=== PATIENT | male | born 1925 | race Caucasian/White ===

== ENCOUNTER 2016-06-13 13:20 | Inpatient (IN) | payer MEDICARE, MEDICAID ==
[~2016-06-13] VITALS: Ht 172.7 cm; Wt 65.8 kg
[2016-06-13] MEDS ORDERED: ASPIRIN 81 MG CHEW TAB ONE ×2 (13:46→13:47)
[2016-06-13] MEDS ORDERED: Furosemide 40 MG/4 ML VIAL ONE (17:42)
[2016-06-13] MEDS ORDERED: ACETAMINOPHEN 325 MG TAB PO PRN (18:55)
[2016-06-13] MEDS ORDERED: DOCUSATE SOD 100 MG CAP PO PRN (18:55)
[2016-06-13] MEDS ORDERED: LORAZEPAM 0.5 MG TAB PO PRN (18:55)
[2016-06-13] MEDS ORDERED: ONDANSETRON 4 MG VIAL IM/IV PRN (18:55)
[2016-06-13] MEDS ORDERED: Carvedilol 3.125 MG TAB PO SCH (21:00)
[2016-06-13 22:31] VITALS: Ht 172.7 cm; Wt 65.8 kg
[2016-06-13 22:32] VITALS: BP_SYST 140; BP_SYST 155; RESP 20; TEMP 97
[2016-06-13] MEDS: APIXABAN 2.5 MG TAB PO SCH (22:45)
[2016-06-13] MEDS: KCL CR 10 MEQ TAB PO SCH (22:46)
[2016-06-14] VITALS (8 sets, daily range): BP systolic 90–129; RESP 16–20; TEMP 97.4–98.6
[2016-06-14] MEDS ORDERED: Carvedilol 6.25 MG TAB PO SCH (09:00)
[2016-06-14] MEDS: Furosemide 20 MG/2 ML VIAL IV SCH ×3 (09:13→16:00)
[2016-06-14] MEDS: KCL CR 10 MEQ TAB PO SCH ×2 (09:13→21:59)
[2016-06-14] MEDS: APIXABAN 2.5 MG TAB PO SCH ×2 (09:14→21:58)
[2016-06-14] MEDS ORDERED: APIXABAN 2.5 MG TAB PO SCH (21:00)
[2016-06-14] MEDS: ACETAMINOPHEN E.R. 650 MG TAB PO SCH (21:55)
[2016-06-14] MEDS: METOPROLOL TART 25 MG TAB PO SCH (22:07)
[2016-06-15] MEDS: Furosemide 20 MG/2 ML VIAL IV SCH ×3 (01:20→16:00)
[2016-06-15 04:49] VITALS: BP_SYST 118; RESP 20; TEMP 97.9
[2016-06-15 07:20] VITALS: BP_SYST 109; RESP 16; TEMP 97.7
[2016-06-15] MEDS ORDERED: CYPROHEPTADINE 4 MG TAB PO SCH (09:00)
[2016-06-15] MEDS: ACETAMINOPHEN E.R. 650 MG TAB PO SCH (09:40)
[2016-06-15] MEDS: KCL CR 10 MEQ TAB PO SCH (09:40)
[2016-06-15] MEDS: APIXABAN 2.5 MG TAB PO SCH (09:41)
[2016-06-15] MEDS ORDERED: MISSING DOSE XX ONE (09:50)
[2016-06-15] MEDS: METOPROLOL TART 25 MG TAB PO SCH (11:03)
[2016-06-15 11:44] VITALS: BP_SYST 112; RESP 20; TEMP 97.3
[2016-06-15 15:02] VITALS: BP_SYST 87; RESP 20; TEMP 98.2
[2016-06-15 18:00] VITALS: BP_SYST 87; RESP 20; TEMP 98.2
== END 2016-06-15 18:49 | disposition home or self-care (01) | DRG 293 ==
LOC: ENRESERVTM → ENRESERVDT → ER 13:20 → EMR 17:40 → 4NT 21:28 → OBSVTOIN 06-15 12:37 → ENPENDDIS 06-15 12:37
PROVIDERS: ADMIT Specialist; ATTEND Specialist
DX: I11.0 Hypertensive heart disease with heart failure (principal); F03.90 Unspecified dementia, unspecified severity, without behavioral disturbance, psychotic disturbance, mood disturbance, and anxiety; I48.2 Chronic atrial fibrillation; I50.43 Acute on chronic combined systolic (congestive) and diastolic (congestive) heart failure; Z79.01 Long term (current) use of anticoagulants; K21.9 Gastro-esophageal reflux disease without esophagitis; Z79.82 Long term (current) use of aspirin; M19.90 Unspecified osteoarthritis, unspecified site; N40.0 Benign prostatic hyperplasia without lower urinary tract symptoms
CPT/HCPCS: 36415; 71010; 80048; 80053; 80061; 81001; 82550; 82553; 82803; 83735; 83880; 84439; 84443; 84484; 85025; 85610; 85730; 93005; 93306; 96374